=== PATIENT | female | born 1975 | race Caucasian/White ===

== ENCOUNTER → 2019-04-13 11:57 | Outpatient (CLI) | payer BC, SELFPAY ==
[2019-04-13 12:37] LABS: Basophils % 0.4 % (0.1-2.0); Eosinophils # 0.3 K/mm3 (0.0-0.4); Eosinophils % 2.6 % (0.1-12.0); Hematocrit 43.5 % (37.0-47.0); Hemoglobin 14.4 g/dL (12.2-16.2); Lymphocytes # 1.9 K/mm3 (0.7-4.5); Lymphocytes % 18.2 % (10-50); Mean Corpuscular HGB Conc 33.1 g/dL (31.8-35.4); Mean Corpuscular Volume 90.7 fl (81-99); Mean Platelet Volume 7.2 fl (7.4-10.4); Monocytes # 0.6 K/mm3 (0.1-1.0); Monocytes % 5.7 % (1.7-9.3); Neutrophils # 7.5 K/mm3 (1.8-7.8); Neutrophils % 73.1 % (37.0-80.0); Platelet Count 257 K/mm3 (142-424); Red Cell Distribution Width 13.1 % (11.5-17.5); White Blood Count 10.3 K/mm3 (4.8-10.8)
[2019-04-13 13:09] LABS: Hemoglobin A1C 4.6 % (0.0-7.0)
[2019-04-13 13:43] LABS: Alanine Aminotransferase 30 U/L (12-78); Albumin Level 3.5 gm/dL (3.4-5.0); Albumin/Globulin Ratio 1.2 (1.1-1.8); Alkaline Phosphatase 76 U/L (46-116); Anion Gap 15.1 mEq/L (5-15); Aspartate Amino Transferase 16 U/L (15-37); Bilirubin,Total 0.5 mg/dL (0.2-1.0); Blood Urea Nitrogen 12 mg/dL (7-18); Calcium 8.7 mg/dL (8.5-10.1); Carbon Dioxide 26 mmol/L (21.0-32.0); Chloride 104 mmol/L (98-107); Chol/HDL Ratio 3.5 (1-3.5); Cholesterol 173 mg/dL (140-200); Creatinine,Serum 0.78 mg/dL (0.55-1.02); Estimated Glomerular Filt Rate 81 ml/min (>60); GFR (African American) 98 ML/MIN (>60); Globulin 2.9 gm/dl (1.3-3.2); Glucose 83 mg/dL (74-106); HDL Cholesterol 49 mg/dL (29-89); LDL Cholesterol 97 mg/dL (0-130); Potassium 4.1 mmoL/L (3.5-5.1); Sodium 141 mmol/L (136-145); Total Protein,Serum 6.4 gm/dL (6.4-8.2); Triglycerides 137 mg/dL (30-200); VLDL Cholesterol 27 mg/dL (0-40)
== END ==
PROVIDERS: Visit Provider Internal Medicine Adolescent Medicine
DX: E66.9 Obesity, unspecified (principal)
CPT/HCPCS: 36415; 80053; 80061; 83036; 85025

== ENCOUNTER 2020-10-09 16:35 | Emergency (ER) | payer BC, SELFPAY ==
[2020-10-09 17:20] VITALS: BP 102/81; PULSE 78; RESP 16; TEMP 36.7; O2SAT 96; BMI 31.3
--- NOTE | 2020-10-09 18:01 | HMH.EDUTC ---
[facility] [place] Clinical Impression: Exposure to COVID-19 virus Disposition: Home, Self-Care Condition on Discharge: Good Instructions: Preventing the Spread of Coronavirus Discharge Instructions Additional Instructions: isolate until test results are known to be neg if symptoms worsen retrun or be seen in ed No sign of a bacterial infection. Likely viral. Viruses can take 7-14 days to run their course. Nasal saline and bulb syringe or nose Elena to remove nasal drainage to help with nasal congestion. Hard to eat, drink, sleep with nasal congestion so important to keep this cleaned out. Monitor temp. Tylenol or Motrin as needed for pain or fever Encourage fluids, water, Gatorade, Powerade, Pedialyte if /toddler/child Warm salt water gargles Warm fluids Sore throat lozenges Sleep elevated Humidifier/vaporizer Your covid swab was sent. These results are typically sent to the primary care. Be sure you follow-up in 2-3 days if no improvement so we can review the results and treat if necessary Follow-up immediately for new or worsening symptoms or no noticeable improvement over the next 48-72 hours. Referrals: José Luis Medina MD [Primary Care Provider] - Time of Disposition: 18:04 Medical Decision Making - Mookie Inquiry Pt receiving controlled substance: No Vital Signs: 10/09/20 17:20 Temperature 98.0 F Temperature Source Oral Pulse Rate [Right Brachial] 78 Respiratory Rate 16 Blood Pressure [Right Arm] 102/81 L Blood Pressure Mean [Right Arm] 88 Blood Pressure Source [Right Arm] Automatic Cuff Blood Pressure Position [Right Arm] Sitting 02 Sat by Pulse Oximetry 96 Oxygen Delivery Method Room Air Orders (Tests/Meds): ORDERS Category Date Time Status Covid-19 Nasal PCR Sendout Deshawn Routine Lab 10/09/20 17:23 Ordered [facility] [place] - General Chief complaint: [facility] Stated complaint: No taste/smell;congestion H/A Time Seen by Provider: 10/09/20 18:01 Mode of Arrival: Ambulatory Source of Information: Patient Limitations: No Limitations Description of Symptoms (Recalled from Triage Doc. by RN): PATIENT REQUESTING COVID TEST D/T EXPOSURE; C/O LOSS OF TASTE/SMELL, FATIGUE, CONGESTION, AND HEADACHE HEENT Symptoms (Recalled from RN notes): Yes Resp Symptoms (Recalled from RN notes): No Skin Symptoms (Recalled from RN notes): No MS Symptoms (Recalled from RN notes): No Functional Status (Recalled from RN notes): WNL - History of Present Illness Provider Complaint: 45 yr old female presnets for Precyse test. Has been exposed. pt states she lost tastw and smell, tiredness, congestion since saturday - Related Data Allergies Allergy/AdvReac Type Severity Reaction Status Date / Time No Known Allergies Allergy Verified 10/09/20 17:41 - Worker's Comp Is this a Worker's Comp case?: No [facility] History - Hepatitis A Screen Drug use history?: No High risk sexual behaviors?: No History of sexually transmitted infection?: No Currently employed?: No Childcare worker?: No Do you have indoor plumbing?: Yes Do you have electricity?: Yes Attestation statement:: This patient has been screened for Hepatitis A risk factors. I have reviewed the patient's past medical history: Yes - Social History Alcohol Intake: never Occupational Status: other ROS Obtained: Yes Systems reviewed as appropriate & no additional complaints - Constitutional Constitutional: Reports system reviewed and no additional complaints, except as docu, Reports body ache, Reports fatigue, Denies fever(s) - Eyes Eyes: Reports system reviewed and no additional complaints, except as docu - ENT Ears, Nose, Mouth, and Throat: Reports system reviewed and no additional complaints, except as docu, Reports as per HPI - Cardiovascular Cardiovascular: Reports system reviewed and no additional complaints, except as docu, Denies chest pain - Respiratory Respiratory: Yes system reviewed and no additional complaints,
[2020-10-09 18:04] VITALS: BP 102/81; PULSE 78; RESP 16; TEMP 36.7; O2SAT 96
[2020-10-11 12:39] LABS: Covid-19 Nasal PCR Sendout Lex Positive
--- NOTE | 2020-10-11 12:48 | PC.NURSE ---
Patient notified of positive COVID results. Educated on quarantine.
== END 2020-10-09 18:12 | disposition home or self-care (01) ==
PROVIDERS: Emergency Provider Nurse Practitioner Family; PCP Internal Medicine Adolescent Medicine
DX: U07.1 COVID-19 (principal)
CPT/HCPCS: 99201; U0004

== ENCOUNTER → 2021-03-08 09:47 | Outpatient (CLI) | payer BC, SELFPAY ==
--- NOTE | 2021-03-08 09:54 | MM_ITS ---
PROCEDURE INFORMATION: Exam: MG Screening 3D Mammography Exam date and time: 03/08/2021 9:54 AM Age: 45 years old Clinical indication: Encounter for screening mammogram for malignant neoplasm of breast . Family history of breast carcinoma TECHNIQUE: Imaging protocol: Screening tomosynthesis and 2D mammography including computer-aided detection (CAD) when performed. COMPARISON: No relevant prior studies available. FINDINGS: MAMMOGRAPHY: Breast composition: The breasts are heterogeneously dense, which may obscure small masses. Mass: There is a circumscribed, ovoid 0.4 cm mass in the left upper outer quadrant, posterior depth. No suspicious mass in the right breast. Architectural distortion: No suspicious distortion. Calcifications: No suspicious calcifications. Asymmetric density: None. Skin thickening: None. Axillary adenopathy: None. IMPRESSION: 1. Recommend left breast spot compression CC/MLO views and ultrasound for further evaluation of a 0.4 cm mass in the left upper outer quadrant. This may represent an intramammary lymph node. 2. No definite mammographic evidence of malignancy in the right breast. ASSESSMENT: BI-RADS Category 0: Incomplete- Need Additional Imaging Evaluation and/or Prior Mammograms for Comparison
== END ==
PROVIDERS: PCP Nurse Practitioner Family; Visit Provider Nurse Practitioner Family
DX: Z12.31 Encounter for screening mammogram for malignant neoplasm of breast (principal)
CPT/HCPCS: 77063; 77067

== ENCOUNTER → 2021-03-23 14:26 | Outpatient (CLI) | payer BC, SELFPAY ==
--- NOTE | 2021-03-23 14:43 | MM_ITS ---
PROCEDURE: MM DIG MAMM DX UNILAT LT CAD Digital Breast Tomosynthesis Included CLINICAL INDICATION: ABN MAMM Follow-up left mammogram COMPARISON: MG MM DIG SCREENING MAMM BI W/CAD from 03/08/2021 US US BREAST LT COMPLETE from 03/23/2021 TECHNIQUE: Standard CC and MLO images and 3D Tomosynthesis was obtained. R2 CAD reviewed. FINDINGS: Spot-compression views are obtained of the left breast as well as rolled views. No suspicious nodules are evident. There is a 4 mm fairly well-circumscribed nodule in the upper outer left breast as seen on the screening mammogram. Left breast ultrasound: Complicated 4 mm nodules present at 12 o'clock. At 1 o'clock there is a 12 x 5 mm hypoechoic nodule with enhanced through transmission of sound. There is increased echogenicity anteriorly but may be related to reverberation artifact. Margins are well-circumscribed. IMPRESSION: Probably benign findings. Suggest 6 month mammographic and sonographic follow-up. BI-RAD Category: 3 Probably Benign Finding Short Term Follow-Up FOLLOW-UP: 6M 6 Month Follow-up (A letter has been sent to the patient regarding results of the study.) Dictated by: Salo Chau MD 03/24/2021 11:02 Salo Chau MD in OV 03/24/2021 11:02
== END ==
PROVIDERS: PCP Nurse Practitioner Family; Visit Provider Nurse Practitioner Family
DX: R92.8 Other abnormal and inconclusive findings on diagnostic imaging of breast (principal)
CPT/HCPCS: 76641; 77061; 77065; G0279

== ENCOUNTER → 2022-04-09 13:19 | Outpatient (CLI) | payer BC, SELFPAY ==
[2022-04-09 14:11] LABS: Basophils # 0.1 K/mm3 (0-0.2); Basophils % 1.3 % (0.1-2.0); Eosinophils # 0.2 K/mm3 (0.0-0.4); Eosinophils % 3.1 % (0.1-12.0); Hemoglobin 15.2 g/dL (12.2-16.2); Lymphocytes # 2.7 K/mm3 (0.7-4.5); Lymphocytes % 34.3 % (10-50); Mean Corpuscular HGB Conc 33.7 g/dL (31.8-35.4); Mean Corpuscular Hemoglobin 30.9 pg (27.0-31.2); Mean Corpuscular Volume 91.5 fl (81-99); Mean Platelet Volume 8.2 fl (7.4-10.4); Monocytes # 0.6 K/mm3 (0.1-1.0); Neutrophils # 4.3 K/mm3 (1.8-7.8); Neutrophils % 54.3 % (37.0-80.0); Platelet Count 295 K/mm3 (142-424); Red Blood Count 4.92 M/mm3 (4.20-5.40); Red Cell Distribution Width 13.7 % (11.5-17.5)
[2022-04-09 14:51] LABS: Alanine Aminotransferase 23 U/L (12-78); Albumin Level 4.3 g/dl (3.5-5.0); Albumin/Globulin Ratio 1.7 (1.1-1.8); Alkaline Phosphatase 69 U/L (38-126); Anion Gap 12.2 mEq/L (5-15); Aspartate Amino Transferase 28 U/L (14-36); Bilirubin,Total 0.4 mg/dl (0.2-1.3); Blood Urea Nitrogen 10 mg/dl (7-17); Calcium 9.8 mg/dl (8.4-10.2); Carbon Dioxide 27 mmol/L (22.0-30.0); Chloride 103 mmol/L (98-107); Estimated Glomerular Filt Rate 68 ml/min (>60); GFR (African American) 82 ML/MIN (>60); Globulin 2.5 g/dL (1.3-3.2); Glucose 95 mg/dl (74-100); Potassium 4.2 mmoL/L (3.5-5.1); Sodium 138 mmol/L (136-145); Total Protein,Serum 6.8 g/dl (6.3-8.2)
== END ==
PROVIDERS: PCP Nurse Practitioner Family; Visit Provider Nurse Practitioner Family
DX: R19.7 Diarrhea, unspecified (principal)
CPT/HCPCS: 36415; 80053; 85025

== ENCOUNTER → 2022-07-03 15:25 | Outpatient (CLI) | payer BC, SELFPAY ==
--- NOTE | 2022-07-03 15:30 | MM_ITS ---
PROCEDURE INFORMATION: Exam: MG Bilateral Screening 3D Mammography Exam date and time: 07/03/2022 3:37 PM Age: 47 years old Clinical indication: Screening examination. Family history of breast carcinoma. TECHNIQUE: Imaging protocol: Bilateral Screening tomosynthesis and 2D mammography including computer-aided detection (CAD) when performed. COMPARISON: 1. MG MM DIG MAMM DX UNILAT LT CAD 03/23/2021 2:41 PM 2. MG MM DIG SCREENING MAMM BI W/CAD 03/08/2021 9:53 AM 3. US BREAST LT COMPLETE 03/23/2021 2:57 PM FINDINGS: MAMMOGRAPHY: Breast composition: The breasts are heterogeneously dense, which may obscure small masses. Mass: No suspicious masses. Architectural distortion: No suspicious distortion. Calcifications: No suspicious calcifications. Asymmetric density: None. Skin thickening: None. Axillary adenopathy: None. IMPRESSION: 1. No mammographic evidence of malignancy. Annual screening is recommended unless otherwise clinically indicated. 2. Given the reported risk factors for this patient, a breast cancer risk assessment may prove useful for further evaluation. ASSESSMENT: BI-RADS Category 1: Negative
== END ==
PROVIDERS: PCP Nurse Practitioner Family; Visit Provider Internal Medicine Adolescent Medicine
DX: Z12.31 Encounter for screening mammogram for malignant neoplasm of breast (principal)
CPT/HCPCS: 77063; 77067

== ENCOUNTER → 2022-09-25 15:42 | Outpatient (POV) | payer BC, SELFPAY | PROVIDERS: Visit Provider Dermatology | DX: Z00.00 Encounter for general adult medical examination without abnormal findings (principal) ==

== ENCOUNTER → 2023-02-12 16:07 | Outpatient (POV) | payer BC, SELFPAY | PROVIDERS: Visit Provider Dermatology | DX: Z00.00 Encounter for general adult medical examination without abnormal findings (principal) ==

== ENCOUNTER → 2023-10-15 15:50 | Outpatient (CLI) | payer BC, SELFPAY ==
--- NOTE | 2023-10-15 15:56 | MM_ITS ---
PROCEDURE INFORMATION: Exam: MG Bilateral Screening 3D Mammography Exam date and time: 10/15/2023 3:49 PM Age: 48 years old Clinical indication: Screening examination. Her mother had breast cancer in her 60s. TECHNIQUE: Imaging protocol: Bilateral Screening tomosynthesis and 2D mammography including computer-aided detection (CAD) when performed. COMPARISON: 1. MG MM DIG SCREENING MAMM BI W/CAD 07/03/2022 3:37 PM 2. MG MM DIG MAMM DX UNILAT LT CAD 03/23/2021 2:41 PM 3. MG MM DIG SCREENING MAMM BI W/CAD 03/08/2021 9:53 AM 4. US BREAST LT COMPLETE 03/23/2021 2:57 PM FINDINGS: MAMMOGRAPHY: Breast composition: The breasts are heterogeneously dense, which may obscure small masses. Mass: No suspicious mass. Architectural distortion: None. Calcifications: No suspicious calcifications. Asymmetric density: None. Skin thickening: None. Axillary adenopathy: None. IMPRESSION: No mammographic evidence of malignancy. Annual screening is recommended unless otherwise clinically indicated. ASSESSMENT: BI-RADS Category 1: Negative
== END ==
PROVIDERS: PCP Nurse Practitioner Family; Visit Provider Nurse Practitioner Family
DX: Z12.31 Encounter for screening mammogram for malignant neoplasm of breast (principal)
CPT/HCPCS: 77063; 77067

== ENCOUNTER 2024-07-10 10:24 | Day surgery (SDC) | payer BC, SELFPAY ==
[2024-07-08 17:20] VITALS: BMI 35.2
--- NOTE | 2024-07-10 10:38 | P.PNANES_ITS ---
[facility] Disclaimer: The information contained in this section may have been updated after the patient was seen, as this information can be updated by other users. Medical History No significant past medical history Surgical History No significant past surgical history Family History Other No significant family history Social History Smoking Status: Never smoker alcohol intake: never substance use type: denies use current occupational status: other Travel in the last 8 weeks: None [facility] Anesthesia Checklist Patient Identification Patient Identification: Arm Band Structural Data Admitted From: Home Planned Operative Procedure/s: Colonoscopy Consent for Planned Operative Procedure(s) Verified: Yes Verified Documents: Surgical Consent and History and Physical NPO Status Verified Time NPO: 00:00 Additional verifications Anesthesia Reactions: No Airway Assessment Mallampati Score:: Class III C-Spine Mobility Assessed: No TMJ Mobility Assessed: No Dentition: Good Dentition Neurological Assessment Level of Consciousness: Awake Hx Seizures: No Numbness or tingling in extremities: No Anesthesia Plan Anesthesia Risk discussed: Yes Anesthesia Plan: Verified ASA Class: II Anesthesia Type: MAC
[2024-07-10 10:51] VITALS: BP 127/81; PULSE 70; RESP 18; TEMP 36.2; O2SAT 97
[2024-07-10 10:55] LABS: Urine Pregnancy, HCG Qual. Negative (Negative)
[2024-07-10] MEDS: LACTATED RINGERS 1000ML 1,000 ML 25 ML IV (10:59)
[2024-07-10 12:31] VITALS: O2SAT 100
[2024-07-10 12:58] VITALS: BP 110/64; PULSE 77; RESP 18; TEMP 36.3; O2SAT 96
--- NOTE | 2024-07-10 13:00 | HMH.SCOPE ---
Procedure: Date: 07/10/24 Patient Date of :: 1975 Procedure Performed:: Total colonoscopy to terminal ileum with polypectomy using biopsy forceps . Indications:: Patient is a 49-year-old female who presents for initial screening colonoscopy. . Performing Provider:: Macho Hill MD Referring Provider:: Chelsie Gibbons . Sedation:: MAC sedation . Procedure:: Patient history was obtained and appropriate physical examination was performed. Patient's medications and allergies were reviewed. Informed consent was obtained after explaining the benefits, alternatives, and risks of the procedure including, but not limited to, bleeding, perforation, missed lesions, and adverse reaction to anesthesia medications. Patient was transported to endoscopy procedure room. Patient was connected to monitoring devices. Throughout the procedure the patient's blood pressure, pulse, and oxygen saturations were monitored continuously. Patient identification and planned procedure were verified by the staff. Patient was positioned in lateral decubitus position. Digital anorectal exam was performed. Variable stiffness Olympus colonoscope was inserted and advanced under direct visualization to the cecum. Adequacy of the colonic preparation was noted. The colonoscope was advanced a short distance into the terminal ileum. The colonoscope was then slowly withdrawn while carefully examining the color, texture, anatomy, and integrity of the mucosoa circumferentially. Within the rectum retroflexion was performed. Colonoscope was then withdrawn. Impression: Colonic preparation was good. There were some rare scattered diverticuli throughout the colon. Colon was rather tortuous. The rectosigmoid region there was a hyperplastic appearing polyp removed in a piecemeal fashion using biopsy forceps. . Findings:: Rare scattered diverticuli Hyperplastic appearing rectosigmoid polyp . Recommendations:: Repeat colonoscopy 5 to 7 years pending pathology Complications:: None immediately apparent Estimated blood obtained (mL): 1 Colonoscopy Component Colonoscopy Component Was a colonoscopy performed during today's procedure?: Yes Recommended follow up colonoscopy of at least 10 years?: No If no, follow up colonoscopy recommended in ___ years?: 5-7 Reason for not recommending >/= 10 yr follow-up interval?: See above
[2024-07-10 13:08] VITALS: BP 101/66; PULSE 75; RESP 18; O2SAT 96
[2024-07-10 13:18] VITALS: BP 101/66; PULSE 75; RESP 18; O2SAT 96
[2024-07-10 13:28] VITALS: BP 146/85; PULSE 68; RESP 18; O2SAT 100
== END 2024-07-10 13:28 | disposition home or self-care (01) ==
PROVIDERS: PCP Nurse Practitioner Family; Visit Provider Surgery
PROC: 0DJD8ZZ Inspection of Lower Intestinal Tract, Via Natural or Artificial Opening Endoscopic (ICD-10-PCS; CPT 45380; principal; 2024-07-10 11:30)
DX: Z12.11 Encounter for screening for malignant neoplasm of colon (principal); D12.7 Benign neoplasm of rectosigmoid junction
CPT/HCPCS: 45380; 81025; J7120

== ENCOUNTER 2024-10-26 10:54 | Outpatient (CLI) | payer BC, SELFPAY ==
--- NOTE | 2024-10-26 11:02 | MM_ITS ---
PROCEDURE INFORMATION: Exam: MG Bilateral Screening 3D Mammography Exam date and time: 10/26/2024 10:46 AM Age: 49 years old Clinical indication: Screening mammogram TECHNIQUE: Imaging protocol: Bilateral Screening tomosynthesis and 2D mammography including computer-aided detection (CAD) when performed. COMPARISON: 1. MG MM DIG SCREENING MAMM BI W/CAD 10/15/2023 3:49 PM 2. MG MM DIG SCREENING MAMM BI W/CAD 07/03/2022 3:37 PM 3. MG MM DIG MAMM DX UNILAT LT CAD 03/23/2021 2:41 PM 4. MG MM DIG SCREENING MAMM BI W/CAD 03/08/2021 9:53 AM FINDINGS: MAMMOGRAPHY: Breast composition: There are scattered areas of fibroglandular density. Mass: None. Architectural distortion: No new or suspicious architectural distortion. Calcifications: No new or suspicious calcifications are present Asymmetric density: No new or suspicious asymmetric density is present Skin thickening: None. Axillary adenopathy: None. IMPRESSION: No mammographic evidence of malignancy. Recommend annual screening mammography unless otherwise clinically indicated. ASSESSMENT: BI-RADS category 1: Negative.
== END 2024-10-26 23:59 | disposition home or self-care (01) ==
LOC: RAD 10:55
PROVIDERS: PCP Nurse Practitioner Family; Visit Provider Internal Medicine Adolescent Medicine
DX: Z12.31 Encounter for screening mammogram for malignant neoplasm of breast (principal)
CPT/HCPCS: 77063; 77067

== ENCOUNTER 2025-11-02 16:05 | Outpatient (CLI) | payer BC, SELFPAY ==
--- OUTSIDE RECORDS SUMMARY | 2025-11-02 16:08 | XMS_ITS | Clinical Summary ---
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 KEEP IN REFRIGERATOR 5 Active Active Problems No known active problems Family History Medical History Relation Name Comments Diabetes Brother Vik Diabetes Father Bradley Osteoporosis Father Bradley Diabetes Maternal Grandfather Solo Stroke Maternal Grandmother Sofy Breast cancer Mother Radha Diabetes Mother Radha Coronary artery disease Paternal Grandfather BO Coronary artery disease Paternal Uncle Pascual Relation Name Status Comments Brother Vik Alive Father Bradley Alive Maternal Grandfather Solo Alive Maternal Grandmother Sofy Alive Mother Radha Alive Paternal Grandfather JW Alive Paternal Uncle Pascual Alive Social History Tobacco Use Types Packs/Day Years Used Date Smoking Tobacco: Never Tobacco Cessation:Counseling Given: Not Answered Alcohol Use Standard Drinks/Week Comments Yes 0 (1 standard drink = 0.6 oz pur e alcohol) social Comments No Sex and Gender Information Value Date Recorded Sex Assigned at Female 02/13/2023 8:29 AM EDT Legal Sex Female 11:39 AM EST Gender Identity Female 02/13/2023 8:29 AM EDT Sexual Orientation Straight 02/13/2023 8: 29 AM EDT Last Filed Vital Signs Vital Sign Reading Time Taken Comments Blood Pressure 112/68 02/24/2025 3:25 PM EDT Pulse - - Temperature - - Respiratory Rate - - Oxygen Saturation - - Inhaled Oxygen Concentration - - Weight 90.3 kg (199 lb) 02/24/2025 3:25 PM EDT Height 170.2 cm (5' 7 ) 02/24/2025 3:25 PM EDT Body Mass Index 31.17 02/24/2025 3:25 PM EDT Plan of Treatment Health Maintenance Due Date Last Done Comments TDAP/TD VACCINES (1 - Tdap) 1996 MAMMOGRAM 2017 COLOGUARD 2022 COLON CANCER SCREENING 5 YEA R SIGMOIDOSCOPY 2022 COLONOSCOPY 20[address]ER SCREENING [address] COLONOGRAPHY 2022 FECAL OCCULT BLOOD TEST 2022 FIT Testing (1 year) 2022 ANNUAL PHYSICAL 02/13/2023 HEPATITIS C SCREENING 02/13/2023 INFLUENZA VACCINE 06/04/2025 10/21/2020 PAP SMEAR 02/13/2026 02/13/2023 Annual Gynecologic Pelvic an d Breast Exam 02/25/2026 02/24/2025, 02/13/2023 Pneumococcal Vaccine 0-49 Aged Out No longer eligible based on patient's age to complete this topic Procedures Procedure Name Priority Date/Time Associated Diagnosis Comments LIQUID-BASED PAP SMEAR WITH HPV GENOTYPING REGARDLESS OF INTERPRETATION, [facility] ([facility]) Routine 02/13/2023 2:59 PM EDT Pap test, as part of routine gynecological examination from Last 3 Months or Most Recently Relevant to Health Maintenance Results * LIQUID-BASED PAP SMEAR WITH HPV GENOTYPING REGARDLESS OF INTERPRETATION (PREETHI,COR,MAD) (02/13/2023 2:59 PM EDT) Reference Lab Report [facility] [address] [place] [address] or [phone] Ag Anand M.D., Technical Report Writer PATIENT NAME LABORATORY NO. [id number] DEAN [id number] AGE SEX SSN CLIENT REF # [id number] 47 1975 F [id number] Purnima GELLER REQUESTING Garima ATTENDING M.Josefina. COPY TO. NIKOLE ANDRES [id number] TALITA BURROUGHS DATE COLLECTED DATE RECEIVED DATE REPORTED 02/13/2023 02/13/2023 02/14/2023 ThinPrep Pap with Cytyc Imaging DIAGNOSIS: Negative for intraepithelial lesion or malignancy Multiple factors can influence accuracy of Pap tests; therefore, screening at regular intervals is necessary for early cancer detection. SPECIMEN ADEQUACY: SATISFACTORY FOR EVALUATION Transformation zone is present. SOURCE OF SPECIMEN: CERVICAL/ENDOCERV ICAL SLIDES: 1 CLINICAL HISTORY: Pap test, as part of routine gynecological examination IUD HPV HR-HPV POOL: Negative The Aptima HPV assay is an in vitro nucleic acid amplification test for the qualitative detection of E6/E7 viral messenger RNA from 14 high risk types of HPV in cervical specimens. The high risk HPV types detected include: 16, 18, 31, 33, 35, 39, 45, 51, 52, 56, 58, 59, 66, 68 DIRECTOR OF MARKETING COMMUNICATIONS: REGLA BENZ (ASCP) CPT CODES: [id number], [id number] 02/14/2023 1:03 PM EDT [facility] ThinPrep Vial Cervix uteri structure / Unknown Collection / Unknown 02/13/2023 2:59 PM EDT 02/13/2023 2:59 PM EDT Talita Burroughs MD PATHOLOGY/CYTOLOGY ORDERABLES Fi nal Result [facility]
[address] [place] [address], from Last 3 Months or Most Recently Relevant to Health Maintenance Insurance [employer] Care Teams Sheet Metal Worker Supervisor Relationship Specialty Start Date End Date Felicia Gandhi APRN [address] [place] [address] PCP - General Nurse Practitioner 01/08/25
--- NOTE | 2025-11-02 16:09 | XR_ITS ---
PROCEDURE INFORMATION: Exam: XR Bilateral Sacroiliac Joints Exam date and time: 11/02/2025 4:14 PM Age: 50 years old Clinical indication: Other: RT hip; Bilateral hip pain TECHNIQUE: Imaging protocol: XR bilateral XR of the sacroiliac joints. Views: 3 or more views. Total images: 3 COMPARISON: CR XR HIP LT 2-3V W/PELVIS 11/02/2025 4:14 PM FINDINGS: Bones/joints: Mild sclerotic changes involving the distal aspect of the left SI joint distant with mild sacroiliitis. Right SI joint is intact. No evidence of acute fracture or dislocation. Soft tissues: Normal. Organs: IUD is noted. IMPRESSION: 1. Mild sclerotic changes involving the distal aspect of the left SI joint distant with mild sacroiliitis. 2. Right SI joint is intact. 3. No evidence of acute fracture or dislocation.
--- NOTE | 2025-11-02 16:09 | XR_ITS ---
PROCEDURE INFORMATION: Exam: XR Left Hip Exam date and time: 11/02/2025 4:14 PM Age: 50 years old Clinical indication: Left hip; Lt hip pain TECHNIQUE: Imaging protocol: Radiologic exam of the left hip. Views: 2 or 3 views hip with pelvis when performed. Total images: 2 COMPARISON: CR - XR SACROILIAC JOINT BI MIN 3V 11/02/2025 4:14 PM FINDINGS: Bones/joints: No evidence of acute fracture or dislocation. Soft tissues: Soft tissues are within normal limits. Organs: An intrauterine device is present. IMPRESSION: No evidence of acute fracture or dislocation.
--- NOTE | 2025-11-02 16:09 | XR_ITS ---
PROCEDURE INFORMATION: Exam: XR Right Foot Exam date and time: 11/02/2025 4:14 PM Age: 50 years old Clinical indication: Pain; Foot; Right; Additional info: Pain in right and left hip. Mortons neuroma of right foot TECHNIQUE: Imaging protocol: Radiologic exam of the right foot. Views: 3 or more views. Total images: 3 COMPARISON: No relevant prior studies available. FINDINGS: Bones/joints: Cystic changes present within the proximal aspect of the 1st proximal phalanx. No evidence of acute fracture or dislocation. Soft tissues: Lateral soft tissue swelling. Other findings: Small bunionette present. IMPRESSION: 1. Cystic changes present within the proximal aspect of the 1st proximal phalanx. 2. Lateral soft tissue swelling. 3. Small bunionette present. 4. No evidence of acute fracture or dislocation.
--- NOTE | 2025-11-02 16:09 | XR_ITS ---
PROCEDURE INFORMATION: Exam: XR Right Hip Exam date and time: 11/02/2025 4:14 PM Age: 50 years old Clinical indication: Right hip; RT hip pain TECHNIQUE: Imaging protocol: Radiologic exam of the right hip. Views: 2 or 3 views hip with pelvis when performed. Total images: 3 COMPARISON: CR - XR SACROILIAC JOINT BI MIN 3V 11/02/2025 4:14 PM FINDINGS: Bones/joints: No evidence of acute fracture or dislocation. Soft tissues: Soft tissues are within normal limits. Organs: An intrauterine device is present. IMPRESSION: No evidence of acute fracture or dislocation.
== END 2025-11-02 23:59 | disposition home or self-care (01) ==
LOC: RAD 16:06
PROVIDERS: PCP Nurse Practitioner Family; Visit Provider Nurse Practitioner Family
DX: M21.621 Bunionette of right foot (principal); M46.1 Sacroiliitis, not elsewhere classified; M79.89 Other specified soft tissue disorders; M25.551 Pain in right hip; M25.552 Pain in left hip; G57.61 Lesion of plantar nerve, right lower limb; R93.7 Abnormal findings on diagnostic imaging of other parts of musculoskeletal system; R93.6 Abnormal findings on diagnostic imaging of limbs
CPT/HCPCS: 72202; 73502; 73630